=== PATIENT | female | born 1985 | race African-American/Black ===

== ENCOUNTER 2020-07-25 00:15 | Emergency (ER) | payer MEDICAID ==
[2020-07-25] MEDS ORDERED: LORazepam 2 MG/ML SDV IVPUSH STA (00:51)
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
[2020-07-25] MEDS ORDERED: Sodium Chloride 0.9% 1,000 ML IV SCH (01:00)
[2020-07-25] MEDS ORDERED: Potassium Chloride 20 MEQ Tab.ER PO ONE (02:39)
[2020-07-25] MEDS ORDERED: Magnesium Sulfate/Water 2 GM/50 ML BAG IV ONE (02:39)
[2020-07-25] MEDS ORDERED: Magnesium Sulfate/Water 2 GM/50 ML BAG ONE (02:47)
[2020-07-25] MEDS ORDERED: Potassium Chloride 20 MEQ Tab.ER ONE (02:47)
[2020-07-25 05:00] LABS: CORONAVIRUS COVID-19 NAA NEGATIVE (NEGATIVE)
--- NOTE | 2020-07-25 07:18 | CT ---
CT chest Technique: Multiple axial sections through the chest were obtained. Intravenous contrast was utilized. Study has been performed as a pulmonary angiogram protocol. Findings: Pulmonary arteries are well opacified. No filling defects are seen to indicate pulmonary embolism. Mild increased stool is seen within the colon. There may be sludge within the gallbladder. Liver shows a small 1 cm cyst within the mid right lobe. No pericardial thickening is seen. Thoracic aorta shows no aneurysm. Mediastinum and hilar regions show no adenopathy. Slight soft tissue density is seen within the superior mediastinum most likely relating to minimal residual thymic tissue. Bilateral breast prostheses are noted. Lung window settings were reviewed which show slight density within the right middle lobe most likely due to scarring. No acute parenchymal change is otherwise seen. Bone window settings were reviewed which appear within normal limits for the patient's age. Impression: 1. No findings of pulmonary embolism. 2. Slight density within the right middle lobe most likely representing scarring. 3. Nothing acute is appreciated on CT study of the chest. Diagnostic code #2 I agree with preliminary report issued by Monse finalized on 07/25/20, 4:42 AM [employer]
== END 2020-07-25 05:51 | disposition home or self-care (01) ==
LOC: JD.ED 00:15
DX: F45.8 Other somatoform disorders (principal); E87.6 Hypokalemia; E83.42 Hypomagnesemia; I10 Essential (primary) hypertension; Z72.0 Tobacco use; Z20.822 Contact with and (suspected) exposure to COVID-19
CPT/HCPCS: 0240U; 36415; 36600; 71275; 80053; 80306; 80307; 81025; 82803; 83605; 83735; 84443; 84484; 85007; 85027; 85379; 93005; 96365; 96366; 96375; 99285; A9270; J2060; J3475; J7030; 93010; 99284